=== PATIENT | male | born 1945 | race Caucasian/White ===

== ENCOUNTER 2016-12-15 12:08 | Inpatient (IN) | payer MEDICARE, BC ==
[~2016-12-15] VITALS: Ht 177.8 cm; Wt 100.3 kg
[~2016-12-15 12:08] MED LIST: ASPIRIN 81M81 MG/TA2 PO; AVAPRO300 M1 PO; CARTIA XT120 MG PO; CEPHALEXIN500 M1 PO; COUMADIN 1MG1 MG/TAB PO; COUMADIN 5MG5 MG/TAB PO; COUMADIN 6MG6 MG/TAB PO; COUMADIN5 MG PO; FISH OIL 1000MG1 CAP PO; FLOMAX 0.40.4 MG/CAP PO; LASIX 40MG TABL40 MG PO; LIPITOR20 MG PO; MAG-OX 400400 MG/TAB PO; NEXIUM 40MG40 MG PO; NORVASC2.5 MG PO; PLAVIX 75MG TAB75 MG PO; PRAVACHOL 40MG40 MG PO; PREDNISONE20 MG PO; PROPAFENONE HC225 MG PO; PROVENTIL0.09 MG/A1 IH; RT SPIRIVA18 MCG IH; TIKOSYN0.5 MG PO; TOPROL XL100 MG PO
[2016-12-15 12:36] VITALS: BP 148/95; PULSE 77; TEMP 97.9
[2016-12-15] MEDS ORDERED: CEPHALEXIN500 M1 PO (14:46)
[2016-12-15 15:55] LABS: ADJUSTED CALCIUM 9.3 mg/dL (8.4-10.2); ALBUMIN 3.3 gm/dL (3.5-5.0); BILIRUBIN,TOTAL 1.2 mg/dL (0.0-1.0); CALCIUM 8.7 mg/dL (8.4-10.2); CREATININE, serum 0.7 mg/dL (0.66-1.25); POTASSIUM 4.1 mmol/L (3.4-5.0); TOTAL PROTEIN 6.8 gm/dL (6.4-8.2)
[2016-12-15 16:00] VITALS: BP 116/62; PULSE 89; TEMP 98.1
[2016-12-15 16:15] LABS: C-REACTIVE PROTEIN 24.5 mg/dL (0.0-0.9)
[2016-12-15 20:08] LABS: BASO % 0.2 % (0.0-2.0); EOS # 0.1 (0.0-0.7); EOS % 0.5 % (0-4.0); GRAN # 8.6 (1.4-6.5); LYMPH # 1.2 (1.2-3.4); MEAN CELL VOLUME 95 fl (80.0-100.0); MEAN CORPUSCULAR HGB CONC 34 g/dl (33.0-37.0); MEAN PLATELET VOLUME 10.4 fl (7.4-10.4); MONO # 0.8 (0.1-0.6); MONO % 7.2 % (1.7-9.3); PLATELET COUNT 203 K/mm3 (130-400); RED BLOOD COUNT 3.28 M/mm3 (4.20-5.60); REDCELL DISTRIBUTION WIDTH-CV 12.7 % (11.5-14.5); WHITE BLOOD COUNT 10.9 K/mm3 (4.8-10.8)
[2016-12-15 20:13] LABS: HEMATOCRIT 31.2 % (42.0-52.0); HEMOGLOBIN 10.5 g/dl (13.5-18.0); MEAN CORPUSCULAR HEMOGLOBIN 32 pg (27.0-31.0)
[2016-12-15 20:21] LABS: INR 4.3 (0.8-3.0)
[2016-12-15 20:45] LABS: PROTHROMBIN TIME 50.9 SECONDS (9.7-12.8)
[2016-12-15 20:48] VITALS: BP 122/52; PULSE 74; TEMP 98.9
[2016-12-15 23:39] VITALS: BP 139/52; PULSE 70; TEMP 98.8
[2016-12-16] VITALS (8 sets, daily range): BP systolic 134–151; BP diastolic 51–63; PULSE 70–77; TEMP 98.4–100.2
[2016-12-16 08:21] LABS: MEAN CELL VOLUME 98 fl (80.0-100.0); MEAN CORPUSCULAR HGB CONC 33 g/dl (33.0-37.0); MEAN PLATELET VOLUME 10.8 fl (7.4-10.4); PLATELET COUNT 234 K/mm3 (130-400); RED BLOOD COUNT 3.55 M/mm3 (4.20-5.60)
[2016-12-16 08:22] LABS: PROTHROMBIN TIME 34.8 SECONDS (9.7-12.8)
[2016-12-16 08:25] LABS: ADD PATHOLOGY DIFF REVIEW NO; HEMATOCRIT 34.7 % (42.0-52.0); HEMOGLOBIN 11.5 g/dl (13.5-18.0); MEAN CORPUSCULAR HEMOGLOBIN 32 pg (27.0-31.0)
[2016-12-16 08:29] LABS: CALCIUM 8.8 mg/dL (8.4-10.2); CREATININE, serum 0.69 mg/dL (0.66-1.25)
[2016-12-16 09:27] LABS: BAND 19 % (0-10); NEUTROPHILS 70 % (42.0-75.2); PLATELET ESTIMATE NORMAL (NORMAL); TOTAL CELLS COUNTED 100
[2016-12-17 03:02] VITALS: BP 138/56; PULSE 95; TEMP 99.7
[2016-12-17 07:23] VITALS: BP 140/52; PULSE 80; TEMP 99.9
[2016-12-17 10:35] LABS: BASO % 0.3 % (0.0-2.0); EOS # 0.2 (0.0-0.7); EOS % 1.4 % (0-4.0); GRAN # 10.5 (1.4-6.5); GRAN % 82.5 % (42.2-75.2); HEMATOCRIT 32.9 % (42.0-52.0); HEMOGLOBIN 10.9 g/dl (13.5-18.0); LYMPH # 0.9 (1.2-3.4); LYMPH % 7.1 % (20.0-51.0); MEAN CELL VOLUME 98 fl (80.0-100.0); MEAN CORPUSCULAR HEMOGLOBIN 32 pg (27.0-31.0); MEAN CORPUSCULAR HGB CONC 33 g/dl (33.0-37.0); MEAN PLATELET VOLUME 10.4 fl (7.4-10.4); MONO % 7.5 % (1.7-9.3); PLATELET COUNT 266 K/mm3 (130-400); RED BLOOD COUNT 3.37 M/mm3 (4.20-5.60); WHITE BLOOD COUNT 12.7 K/mm3 (4.8-10.8)
[2016-12-17 10:42] LABS: INR 1.7 (0.8-3.0); PROTHROMBIN TIME 19.4 SECONDS (9.7-12.8)
[2016-12-17 11:03] VITALS: BP 124/58; PULSE 79; TEMP 99
[2016-12-17 16:03] VITALS: BP 113/46; PULSE 71; TEMP 100.3
[2016-12-17 20:06] VITALS: BP 122/49; PULSE 70; TEMP 98.5
[2016-12-18 00:03] VITALS: BP 116/52; PULSE 67; TEMP 99.6
[2016-12-18 03:30] VITALS: BP 121/48; PULSE 70; TEMP 98.7
[2016-12-18 07:43] LABS: MEAN CELL VOLUME 97 fl (80.0-100.0); MEAN CORPUSCULAR HGB CONC 33 g/dl (33.0-37.0); MEAN PLATELET VOLUME 10.3 fl (7.4-10.4); PLATELET COUNT 235 K/mm3 (130-400); RED BLOOD COUNT 3.08 M/mm3 (4.20-5.60); REDCELL DISTRIBUTION WIDTH-CV 12.6 % (11.5-14.5); WHITE BLOOD COUNT 10.8 K/mm3 (4.8-10.8)
[2016-12-18 07:47] LABS: INR 1.5 (0.8-3.0); PROTHROMBIN TIME 16.4 SECONDS (9.7-12.8)
[2016-12-18 07:50] LABS: HEMOGLOBIN 9.9 g/dl (13.5-18.0); MEAN CORPUSCULAR HEMOGLOBIN 32 pg (27.0-31.0)
[2016-12-18 07:51] LABS: ADD PATHOLOGY DIFF REVIEW NO
[2016-12-18 07:54] LABS: CREATININE, serum 0.76 mg/dL (0.66-1.25); POTASSIUM 3.4 mmol/L (3.4-5.0)
[2016-12-18 08:09] VITALS: BP 141/58; PULSE 73; TEMP 98.8
[2016-12-18 08:53] LABS: BAND 4 % (0-10); EOSINOPHIL 1 % (0-4); NEUTROPHILS 69 % (42.0-75.2); PLATELET ESTIMATE NORMAL (NORMAL); TOTAL CELLS COUNTED 100
[2016-12-18 11:55] VITALS: BP 119/54; PULSE 69; TEMP 97.5
[2016-12-18] MEDS ORDERED: TEFLARO 60600 MG/VIA IV (11:58)
[2016-12-21] MEDS ORDERED: VANCOMYCIN 11 G/VIA1 IV (08:19)
== END 2016-12-18 13:55 | disposition home or self-care (01) | DRG 603 ==
LOC: MEDICAL 12:08
PROVIDERS: Nurse Practitioner Family; Physician Assistant
PROC: 02HV33Z Insertion of Infusion Device into Superior Vena Cava, Percutaneous Approach (ICD-10-PCS; principal; 2016-12-16)
DX: L03.116 Cellulitis of left lower limb (principal); I48.91 Unspecified atrial fibrillation; J44.9 Chronic obstructive pulmonary disease, unspecified; I89.0 Lymphedema, not elsewhere classified; F17.210 Nicotine dependence, cigarettes, uncomplicated; Z79.01 Long term (current) use of anticoagulants
CPT/HCPCS: 99223-AI; 99233-AI; 99239; C1751; J1644; J2270; J3370; J7040; J7050

== ENCOUNTER → 2016-12-24 | Outpatient (CLI) | payer MEDICARE, BC ==
[~2016-12-24] MED LIST changes: +TEFLARO 60600 MG/VIA IV; +VANCOCIN HCL1 GM IV; +VANCOMYCIN 11 G/VIA1 IV
== END ==
LOC: COL.RAD 14:53
DX: M21.612 Bunion of left foot (principal); M79.89 Other specified soft tissue disorders; M19.072 Primary osteoarthritis, left ankle and foot

== ENCOUNTER 2018-11-23 06:55 | Day surgery (SDC) | payer MEDICARE, BC ==
[~2018-11-23] VITALS: Ht 177.8 cm; Wt 103.5 kg
[2018-11-23 07:21] VITALS: BP 106/54; PULSE 73; TEMP 97
[2018-11-23 07:36] LABS: POTASSIUM 5.6 mmol/L (3.4-5.0)
[2018-11-23 08:02] LABS: INR 2.2 (0.8-3.0)
[2018-11-23 08:05] LABS: THYROID STIMULATING HORMONE 1.54 uIU/mL (0.465-4.680)
[2018-11-23] MEDS ORDERED: TIKOSYN0.25 MG PO (08:44)
[2018-11-23] MEDS ORDERED: PLAVIX 75MG TAB75 MG PO (08:45)
[2018-11-23] MEDS ORDERED: PROVENTIL0.09 MG/A1 IH (08:49)
--- NOTE | 2018-11-23 09:22 | NUR ---
Procedure cancelled per Dr Argueta.Will await further orders.
[2018-11-23 09:45] VITALS: BP 102/73; PULSE 77
--- NOTE | 2018-11-23 09:55 | NUR ---
Pt ambulatory to exit. MAYRA and cardioversion were not completed today as pt was not in AFIB. PT has discussed poc and follow up with cardiology. Pacer interrogation was done by optical laboratory mechanic rn prior to pt's departure. pt denies any questions or concerns at time of departure.
== END 2018-11-23 09:55 | disposition home or self-care (01) ==
LOC: COL.CAR 06:55
PROVIDERS: Internal Medicine Cardiovascular Disease
DX: I48.0 Paroxysmal atrial fibrillation (principal); I70.213 Atherosclerosis of native arteries of extremities with intermittent claudication, bilateral legs; G47.33 Obstructive sleep apnea (adult) (pediatric); I25.10 Atherosclerotic heart disease of native coronary artery without angina pectoris; J44.9 Chronic obstructive pulmonary disease, unspecified; E66.9 Obesity, unspecified; D50.9 Iron deficiency anemia, unspecified; N40.0 Benign prostatic hyperplasia without lower urinary tract symptoms; Z79.01 Long term (current) use of anticoagulants; Z79.02 Long term (current) use of antithrombotics/antiplatelets; Z95.0 Presence of cardiac pacemaker; Z87.891 Personal history of nicotine dependence
CPT/HCPCS: J2704; J7120

== ENCOUNTER 2018-12-07 08:25 | Day surgery (SDC) | payer MEDICARE, BC ==
[~2018-12-07] VITALS: Ht 177.8 cm; Wt 105.0 kg
[~2018-12-07 08:25] MED LIST changes: +TIKOSYN0.25 MG PO
[2018-12-07] MEDS ORDERED: SPIRIVA RE2.5 MCG/Ac IH (08:46)
[2018-12-07 08:52] VITALS: BP 121/64; PULSE 74; TEMP 97.6
[2018-12-07 10:00] VITALS: BP 126/26; PULSE 80
--- NOTE | 2018-12-07 10:16 | NUR ---
Pt is ambulatory to bathroom. Eval by Dr. Muniz is pending. Celena RN did call him abou t20 min ago leaving a message. Rafael RHODES just spoke with Dr. Muniz and he is on the way. Pt updated.
--- NOTE | 2018-12-07 10:59 | NUR ---
Pt sitting in chair in room 11, remains p,w,d, resp reg and unlabored, hr regular. Called Dr. Muniz who states he is on the way.
--- NOTE | 2018-12-07 11:00 | NUR ---
Dr. Muniz in room to speak with pt. MAYRA/CV cancelled per Dr. Muniz. Dr. Muniz instucted pt to stop tikosyn today. Dr. Muniz's office will send script for Amiodarone to pt's pharmacy. Pt is to start Amiodarone 5-7 days after Tikosyn is stopped. Dr. Muniz's office with schedule f/u in 2 weeks. Pt verbalized understanding. Dr. Muniz will enter discharge orders.
--- NOTE | 2018-12-07 11:20 | NUR ---
Pt and left unit per ambulation. Pt will call office for follow up appt.
== END 2018-12-07 13:37 | disposition home or self-care (01) ==
LOC: COL.CAR 08:25
DX: I48.0 Paroxysmal atrial fibrillation (principal); Z95.0 Presence of cardiac pacemaker; Z79.01 Long term (current) use of anticoagulants; Z79.899 Other long term (current) drug therapy; I08.3 Combined rheumatic disorders of mitral, aortic and tricuspid valves; G47.33 Obstructive sleep apnea (adult) (pediatric); Z95.820 Peripheral vascular angioplasty status with implants and grafts; Z87.891 Personal history of nicotine dependence

== ENCOUNTER 2019-09-02 13:02 | Observation (INO) | payer MEDICARE, BC ==
[~2019-09-02] VITALS: Ht 177.8 cm; Wt 103.9 kg
[~2019-09-02 13:02] MED LIST changes: -COUMADIN 1MG1 MG/TAB PO; +SPIRIVA RE2.5 MCG/Ac IH; +TOPROL XL 50MG50 MG PO; -TOPROL XL100 MG PO
[2019-09-02] MEDS ORDERED: COUMADIN 5MG5 MG/TAB PO (13:50)
[2019-09-02] MEDS ORDERED: MICARDIS80 MG PO (13:51)
[2019-09-02] MEDS ORDERED: ALDACTONE 25MG25 M1 PO (13:53)
[2019-09-02 13:55] VITALS: BP 106/53; PULSE 71; TEMP 97.9
[2019-09-02] MEDS ORDERED: DEMADEX 20MG20 M1 (13:55)
[2019-09-02 13:59] LABS: HEMOGLOBIN 11.2 g/dl (13.5-18.0); MEAN CELL VOLUME 98 fl (80.0-100.0); MEAN CORPUSCULAR HEMOGLOBIN 32 pg (27.0-31.0); MEAN CORPUSCULAR HGB CONC 33 g/dl (33.0-37.0); MEAN PLATELET VOLUME 10.7 fl (7.4-10.4); PLATELET COUNT 192 K/mm3 (130-400); RED BLOOD COUNT 3.49 M/mm3 (4.20-5.60); REDCELL DISTRIBUTION WIDTH-CV 12.9 % (11.5-14.5)
[2019-09-02 14:04] LABS: HEMATOCRIT 34.2 % (42.0-52.0)
[2019-09-02 14:06] LABS: INR 1.6 (0.8-3.0); PROTHROMBIN TIME 17.7 SECONDS (9.7-12.8)
[2019-09-02 14:08] LABS: PARTIAL THROMBOPLASTIN TIME 40.6 SECONDS (26.0-37.0)
[2019-09-02 14:11] LABS: CALCIUM 9.6 mg/dL (8.4-10.2); CREATININE, serum 2.38 (0.66-1.25)
[2019-09-02 14:15] LABS: POTASSIUM 6.9 mmol/L (3.4-5.0)
[2019-09-02 15:08] LABS: CALCIUM 9.5 mg/dL (8.4-10.2); CREATININE, serum 2.23 (0.66-1.25)
[2019-09-02 15:12] LABS: POTASSIUM 7.4 mmol/L (3.4-5.0)
[2019-09-02 16:00] VITALS: BP 112/56; BP 133/60
--- NOTE | 2019-09-02 18:25 | NUR ---
Pt arrives to medical unit from Express unit via WC, awake and alert, oriented x 4, steady gait. IVF's infusing to left forearm site with slight edema superior to site, that pt reports has been there, no signs of infiltration. Pt denies further needs. Call light in reach.
[2019-09-02 18:31] VITALS: BP 138/50; PULSE 69; TEMP 97.7
--- NOTE | 2019-09-02 19:09 | NUR ---
Report with CARMELO Malave. Pt sitting up in chair eating dinner, denies needs. Call light in reach.
[2019-09-02 19:25] VITALS: BP 120/43; PULSE 73; TEMP 98
[2019-09-02 19:41] LABS: ALBUMIN 4.6 gm/dL (3.5-5.0); CALCIUM 11.4 mg/dL (8.4-10.2); CREATININE, serum 2.29 (0.66-1.25); PHOSPHOROUS 6.5 mg/dL (2.5-4.5)
--- NOTE | 2019-09-02 19:45 | NUR ---
Resting in recliner. Assessment complete. Right lobes wheezing with expiration and left upper lobe diminished. Heart sounds normal. Bowels active x4. Pulses strong throughout. No edema noted at this time. Bilateral lower extremity discoloration. Scabbed abrasions to forarms bilaterally. Bicarb infusing as ordered to left forearm. Telemetry on. Denies needs at this time. Call light in reach. Will monitor.
--- NOTE | 2019-09-02 19:55 | NUR ---
Lab called stating patient K+ level is 6.0. Spoke with Dr. Jeffries. Asked for patient bicarb level or co2 level. Carbon dioxide is 21. Per Dr. Jeffries repeat basic in AM. Heart healthy diet. Consult dietary for low potassium diet teaching. Also obtained order for PRN tylenol while on phone. No other orders at this time.
--- NOTE | 2019-09-02 22:35 | NUR ---
Sitting in recliner. Denies needs. Call light in reach.
[2019-09-02 23:16] VITALS: BP 137/52; PULSE 71; TEMP 98.7
--- NOTE | 2019-09-03 02:03 | NUR ---
Resting in bed asleep. No obvious signs of distress. Call light in reach.
[2019-09-03 03:30] VITALS: BP 126/57; PULSE 72; TEMP 97.8
--- NOTE | 2019-09-03 04:15 | NUR ---
Resting in bed. Denies needs. Call light in reach.
--- NOTE | 2019-09-03 06:04 | NUR ---
Patient had uneventful night. Resting in recliner this AM. Call light in reach.
--- NOTE | 2019-09-03 07:28 | NUR ---
Report given to CARMELO Armstrong
--- NOTE | 2019-09-03 07:30 | NUR ---
Report received from CARMELO Malave. PT in recliner at side of bed, discussed renal ultrasound plan and to stay NPO for now. Pt agreeable to plan, will continue ot monitor.
[2019-09-03 07:53] LABS: CALCIUM 9.7 mg/dL (8.4-10.2); CREATININE, serum 1.7 (0.66-1.25); POTASSIUM 5.3 mmol/L (3.4-5.0)
--- NOTE | 2019-09-03 08:31 | NUR ---
Assessment charted. Pt agreeable to Renal US plan. Called Radiology and she calledi n US tech to complete ultrasound. Will discuss home meds with Bedros during rounds as pts home meds not addressed to date. Pt denies pain. REsting quietly. INT to LFA. Denies needs, will continue to monitor.
[2019-09-03 12:09] VITALS: BP 126/59; PULSE 72; TEMP 97.8
--- NOTE | 2019-09-03 13:32 | NUR ---
Plan: Plans to return home with Cordelia Dawkins [phone]. Assessment: SW met with atient about DC plan. Patient reports that he resides in [place] with his spouse. Patient reports having a pacemaker and using CPAP as his DME. No additional devices for mobility. Patient reports that his PCP is Dr. Jf Hassan. Patient shares that he uses [facility] for Medications with difficulty. Patient reports that his is the DPOA and they have a Living will. Patient declines home health services and has transportation home. Patient reports that his does not have any care concerns. Action: SW educated patient on services and community supports.
--- NOTE | 2019-09-03 13:40 | NUR ---
DIscharge teachign completed at this time. INT dc'd, tip intact. Reviewed dishcarge packet, follow up appointments. Pt left wtih all belongings, escorted out by myself, to drive home criteria met.
== END 2019-09-03 13:40 | disposition home or self-care (01) ==
LOC: COL.CAR 13:02 → MEDICAL 16:44
PROVIDERS: Internal Medicine Interventional Cardiology; ADMIT Internal Medicine Nephrology
DX: E87.5 Hyperkalemia (principal); E87.2 Acidosis; I13.0 Hypertensive heart and chronic kidney disease with heart failure and stage 1 through stage 4 chronic kidney disease, or unspecified chronic kidney disease; N18.3 Chronic kidney disease, stage 3 (moderate); I50.20 Unspecified systolic (congestive) heart failure; R06.02 Shortness of breath; J44.9 Chronic obstructive pulmonary disease, unspecified; E78.5 Hyperlipidemia, unspecified; I25.10 Atherosclerotic heart disease of native coronary artery without angina pectoris; I73.9 Peripheral vascular disease, unspecified; I34.0 Nonrheumatic mitral (valve) insufficiency; Z79.01 Long term (current) use of anticoagulants; Z79.899 Other long term (current) drug therapy; Z87.891 Personal history of nicotine dependence; Z95.0 Presence of cardiac pacemaker
CPT/HCPCS: G0378; J1815

== ENCOUNTER 2019-09-30 10:49 | Day surgery (SDC) | payer MEDICARE, BC ==
[~2019-09-30] VITALS: Ht 177.8 cm; Wt 106.6 kg
[2019-09-30] VITALS (11 sets, daily range): BP systolic 118–148; BP diastolic 45–82; PULSE 70–77; TEMP 98.1
[~2019-09-30 10:49] MED LIST changes: +ALDACTONE 25MG25 M1 PO; +DEMADEX 20MG20 M1; +MICARDIS80 MG PO; +SODIUM BICARBON1 POW PO
[2019-09-30 11:55] LABS: MEAN CELL VOLUME 99 fl (80.0-100.0); MEAN CORPUSCULAR HGB CONC 33 g/dl (33.0-37.0); MEAN PLATELET VOLUME 10.6 fl (7.4-10.4); PLATELET COUNT 150 K/mm3 (130-400); RED BLOOD COUNT 2.94 M/mm3 (4.20-5.60); REDCELL DISTRIBUTION WIDTH-CV 13.3 % (11.5-14.5)
[2019-09-30 11:58] LABS: HEMOGLOBIN 9.7 g/dl (13.5-18.0); MEAN CORPUSCULAR HEMOGLOBIN 33 pg (27.0-31.0)
[2019-09-30 12:02] LABS: INR 1.1 (0.8-3.0); PROTHROMBIN TIME 11.8 SECONDS (9.7-12.8)
[2019-09-30 12:21] LABS: CALCIUM 9.1 mg/dL (8.4-10.2); CREATININE, serum 1.05 (0.66-1.25); POTASSIUM 4.4 mmol/L (3.4-5.0)
--- NOTE | 2019-09-30 16:20 | NUR ---
SEE MERGE DOCUMENTATION FOR MEDICATION ADMINISTRATION AND INTA/POST PROCEDURE SEDATION ASSESSMENTS.
--- NOTE | 2019-09-30 16:50 | NUR ---
Back from greens laborer by bed. right groin site brandee CD&I. VSS. Denies pain and needs at this time
--- NOTE | 2019-09-30 20:10 | NUR ---
INT discontinued intact after pt ambulated to bathroom with steady gait. right groin site CD&I. Discharge instructions given. Transferred to private car by emilie
== END 2019-09-30 20:10 | disposition home or self-care (01) ==
LOC: COL.CAR 10:49
PROVIDERS: Internal Medicine Interventional Cardiology
DX: I25.10 Atherosclerotic heart disease of native coronary artery without angina pectoris (principal); R94.39 Abnormal result of other cardiovascular function study; I48.0 Paroxysmal atrial fibrillation; G47.33 Obstructive sleep apnea (adult) (pediatric); Z79.01 Long term (current) use of anticoagulants; Z95.0 Presence of cardiac pacemaker; Z79.02 Long term (current) use of antithrombotics/antiplatelets; Z73.9 Problem related to life management difficulty, unspecified; Z20.828 Contact with and (suspected) exposure to other viral communicable diseases
CPT/HCPCS: J1644; J1940; J2250; J3010

== ENCOUNTER 2023-03-18 14:35 | Inpatient (IN) | payer MEDICARE, BC ==
[~2023-03-18] VITALS: Ht 177.8 cm; Wt 103.1 kg
[~2023-03-18 14:35] MED LIST changes: +ATROVENT NASAL15 ML NS; +KLOR-CON M2020 MEQ PO; +LIPITOR 80MG80 MG PO; +PACERONE200 MG PO; +TRELEGY ELLIPT1 EAC1 IH; +VITAMIN B122500 MCG PO; +VITAMIN D31000 IU PO; +VITAMINC1000TA PO
[2023-03-18] MEDS ORDERED: COUMADIN 5MG5 MG/TAB PO (15:11)
[2023-03-18 16:05] LABS: BASO % 0.5 % (0.0-2.0); EOS % 0.7 % (0.0-4.0); GRAN # 3.2 K/mm3 (1.4-6.5); GRAN % 76.9 % (42.2-75.2); HEMOGLOBIN 10.5 g/dl (13.5-18.0); LYMPH # 0.3 K/mm3 (1.2-3.4); LYMPH % 7.4 % (20.0-51.0); MEAN CELL VOLUME 104 fl (80.0-100.0); MEAN CORPUSCULAR HEMOGLOBIN 33 pg (27-31); MEAN CORPUSCULAR HGB CONC 32 g/dl (33.0-37.0); MEAN PLATELET VOLUME 11.1 fl (7.4-10.4); MONO # 0.6 K/mm3 (0.1-0.6); MONO % 13.8 % (1.7-9.3); PLATELET COUNT 128 K/mm3 (130-400); RED BLOOD COUNT 3.18 M/mm3 (4.20-5.60); REDCELL DISTRIBUTION WIDTH-CV 15.6 % (11.5-14.5)
[2023-03-18 16:08] LABS: HEMATOCRIT 32.9 % (42.0-52.0)
[2023-03-18 16:28] LABS: ALBUMIN 3.3 gm/dL (3.4-4.8); BILIRUBIN,TOTAL 1.4 mg/dL (0.2-1.2); CALCIUM 9.1 mg/dL (8.4-10.2); CREATININE, serum 1.1 mg/dL (0.72-1.25); POTASSIUM 4.1 mmol/L (3.5-4.5); TOTAL PROTEIN 6.6 gm/dL (6.2-8.1)
[2023-03-18 16:35] LABS: TROPONIN-I 0.014 ng/mL (0.00-0.033)
[2023-03-18 16:52] LABS: COLLECTION METHOD CLEAN CATCH
[2023-03-18 17:06] LABS: PH 5.5 (5.0-8.5); URINE APPEARANCE Hazy (CLEAR/HAZY); URINE COLOR Yellow (YELLOW); URINE GLUCOSE Negative (NEGATIVE); URINE KETONE Negative (NEGATIVE); URINE PROTEIN(semi-quant) 2+ (NEGATIVE)
[2023-03-18 17:07] LABS: GRANULAR CAST >12 /lpf (0); MUCOUS Present (NOT PRESENT); URINE BACTERIA Moderate /hpf (NONE SEEN); URINE BLOOD Negative (NEGATIVE); URINE NITRATE Negative (NEGATIVE)
[2023-03-18 17:08] LABS: SQUAMOUS EPITHELIAL 0-2 /hpf (0-10); URINE RBC None Seen /hpf (0-2)
[2023-03-18 20:15] VITALS: BP 137/71; PULSE 86; TEMP 97.6
[2023-03-18 21:00] VITALS: BP_SYST 120
[2023-03-18 21:30] LABS: PHOSPHOROUS 4.3 mg/dL (2.3-4.7)
[2023-03-18 21:34] VITALS: BP 143/110; PULSE 116; TEMP 97.1
[2023-03-18 21:44] LABS: INR 5.8 (0.8-3.0); PROTHROMBIN TIME 60.2 SECONDS (9.7-12.8)
[2023-03-18 23:29] VITALS: BP 120/66; PULSE 71; TEMP 97.6
--- NOTE | 2023-03-18 23:37 | NUR ---
patient arrived from ED around 2014, alert and oriented x4. pt ambulate with steady gait but experiencing some weakness, denies chest pain and reports being short of breath, head of bead elevated, o2 sat at 97% on 3L per oxymask. BLE +3 pitting edema and slight purpleish discoloration, dry cracked heels with closed old ulcers/callouses on ball of left foort and right lower bottom toe, genaral extremities bruising noted. IV in LH is patent, site is clean dry and intact. pt feeling like he "can't catch breath" denies chest pain, WILFREDO Larsen notified, morphine given at this time. pt has no further needs, questions or concerns at this time. fall precautions in place, call light within reach, will continue to monitor.
[2023-03-19] VITALS (13 sets, daily range): BP systolic 103–143; BP diastolic 63–77; PULSE 60–65; TEMP 97.8–98.6
[2023-03-19 08:10] LABS: HEMOGLOBIN 10.1 g/dl (13.5-18.0); MEAN CELL VOLUME 105 fl (80.0-100.0); MEAN CORPUSCULAR HEMOGLOBIN 34 pg (27-31); MEAN CORPUSCULAR HGB CONC 32 g/dl (33.0-37.0); MEAN PLATELET VOLUME 10.9 fl (7.4-10.4); PLATELET COUNT 119 K/mm3 (130-400); REDCELL DISTRIBUTION WIDTH-CV 15.8 % (11.5-14.5)
[2023-03-19 08:13] LABS: HEMATOCRIT 31.4 % (42.0-52.0)
[2023-03-19 08:24] LABS: ANISOCYTOSIS 1+; BAND 4 % (0-10); BASOPHIL 1 % (0-2); HYPOCHROMIA 1+; LYMPHOCYTE 6 % (20.0-51.0); NEUTROPHILS 85 % (42.0-75.2)
[2023-03-19 08:25] LABS: OVALOCYTES 1+
[2023-03-19 08:26] LABS: CREATININE, serum 1.31 mg/dL (0.72-1.25); POTASSIUM 4.4 mmol/L (3.5-4.5); PROTHROMBIN TIME 75.2 SECONDS (9.7-12.8)
[2023-03-19 08:27] LABS: INR 7.3 (0.8-3.0)
--- NOTE | 2023-03-19 14:51 | NUR ---
Automatic I Threading Machine Feeder met with patient to discuss discharge planning. Patient lives in [place] with his , Cordelia (ph#[phone]) and sees Dr. Obregon at [facility] for primary care. Patient obtains medications from [facility] with no difficulties. Patient was recently admitted to this hospital and advised he attended his follow up appointment with Dr. Obregon. Patient did not think he had any new prescriptions after his last stay. Patient stated he is normally independent with ADLS and drives himself to medical appointments. Patient does not normally use DME for ambulation but has been using a walker for the last couple of days. Patient has a CPAP and home oxygen established. Patient advised he is normally on two liters. Patient plans to return home at time of discharge. PT/OT ordered. Discharge Plan: Home
[2023-03-20] VITALS (11 sets, daily range): BP systolic 118–135; BP diastolic 63–73; PULSE 60–73; TEMP 97.2–98.2
--- NOTE | 2023-03-20 05:30 | NUR ---
ASSESSMENT COMPLETE FOR PACKING CHECKER. PT HAD AN EPISODE SHORTLY AFTER PLACING HIS CPAP ON, WHERE HE COMPLAINED HE FELT HE COULD NOT BREATH AND FELT ANXIOUS. PT'S O2 SATS WERE FOUND TO BE IN THE UPPER 70'S. RT CALLED. PT PLACED ON 5L VIA OXYMASK. PT'S O2 UP TO 95%. HOSPITALIST INFORMED. PT REQUESTED MORPHINE FOR HIS ANXIETY. HOSPITALIST CALLED. PT GIVEN MORPHINE TO RELAX HIS MUSCLES THAT SUPPORT BREATHING, SO THAT HE COULD BREATH EASIER. PT FELT THE MORPHINE WAS EFFECTIVE. PT DENIED CHEST PAIN, N,V,D OR DIZZINESS. FALL PRECAUTIONS IN PLACE. BED ALARM ON. CALL LIGHT WITHIN REACH.
--- NOTE | 2023-03-20 06:40 | NUR ---
resting in chair, bedside shift report received from CARMELO Green, O2 on at this time
[2023-03-20 06:54] LABS: HEMOGLOBIN 10.3 g/dl (13.5-18.0); MEAN CELL VOLUME 104 fl (80.0-100.0); MEAN CORPUSCULAR HEMOGLOBIN 33 pg (27-31); MEAN CORPUSCULAR HGB CONC 32 g/dl (33.0-37.0); MEAN PLATELET VOLUME 11.7 fl (7.4-10.4); PLATELET COUNT 122 K/mm3 (130-400); REDCELL DISTRIBUTION WIDTH-CV 15.6 % (11.5-14.5)
[2023-03-20 06:55] LABS: HEMATOCRIT 32.2 % (42.0-52.0)
[2023-03-20 07:14] LABS: CALCIUM 8.9 mg/dL (8.4-10.2); CREATININE, serum 1.34 mg/dL (0.72-1.25); POTASSIUM 4.2 mmol/L (3.5-4.5)
[2023-03-20 07:21] LABS: INR 6.2 (0.8-3.0); PROTHROMBIN TIME 64.4 SECONDS (9.7-12.8)
[2023-03-20 07:29] LABS: BAND 8 % (0-10); LYMPHOCYTE 10 % (20.0-51.0); NEUTROPHILS 68 % (42.0-75.2); PLATELET ESTIMATE NORMAL (NORMAL)
--- NOTE | 2023-03-20 07:45 | NUR ---
remains up in recliner, full assessment completed, see interventions for further info, denies pain or needs at this time, instructed to call when he uses the urinal so we can record his output, verbalizes understanding
--- NOTE | 2023-03-20 09:00 | NUR ---
called and had attempted to use the urinal but missed and was incontinent, unmeasured void documented,
--- NOTE | 2023-03-20 09:56 | NUR ---
Initial visit; Patient thanked Warehouse Order Picker for looking in on him and offering God's blessings for healing and to keep him in her prayers. Warehouse Order Picker wished him well.
--- NOTE | 2023-03-20 10:30 | NUR ---
mental health tech calls stating his heart rate is elevated at this time, entered room and patient was returning from ambulating with physical therapy, is now resting in chair, mental health tech notified
--- NOTE | 2023-03-20 11:30 | NUR ---
sitting up in chair ready to eat lunch, denies needs
--- NOTE | 2023-03-20 12:00 | NUR ---
sitting up in chair ready for lunch
--- NOTE | 2023-03-20 13:05 | NUR ---
had lunch and tolerated well, remains up in chair, Lasix IV given
--- NOTE | 2023-03-20 15:34 | NUR ---
GARETT Quesada provided patient with Medicare.gov list of HH agencies in the surrounding area. Patient expressed that at this time he is not interested in discharging with HH services. GARETT Student let patient know to inform staff if he would like to pursue with HH services so referrals could be sent.
--- NOTE | 2023-03-20 16:07 | NUR ---
shift report given to CARMELO Salazar
--- NOTE | 2023-03-20 16:08 | NUR ---
PATIENT AWAKE AND ALERT, SITTING UP IN BED, O2 @ 6LOM. PATIENTS CALL LIGHT WITHIN REACH. SHE DENIES ANY NEEDS OR COMPLAINTS AT THIS TIME.
[2023-03-21 00:10] VITALS: BP_SYST 127
[2023-03-21 03:24] VITALS: BP 141/62; PULSE 77; TEMP 97.5
[2023-03-21 04:10] VITALS: BP_SYST 141
[2023-03-21 07:23] VITALS: BP 108/63; PULSE 62; TEMP 97.6
--- NOTE | 2023-03-21 08:00 | NUR ---
PATIENT AWAKE AND ALERT, SITTING UP IN BED. PATIENT DENIES ANY NEEDS OR COMPLAINTS AT THIS TIME. O2 AT 4LOM. CALL LIGHT WITHIN REACH. FALL PRECAUTIONS IN PLACE
[2023-03-21 08:37] LABS: INR 5.6 (0.8-3.0); PROTHROMBIN TIME 57.7 SECONDS (9.7-12.8)
[2023-03-21 08:38] VITALS: BP_SYST 108
[2023-03-21 08:51] LABS: CALCIUM 9.1 mg/dL (8.4-10.2); CREATININE, serum 1.39 mg/dL (0.72-1.25); POTASSIUM 3.5 mmol/L (3.5-4.5)
[2023-03-21 11:04] VITALS: BP 121/65; PULSE 61; TEMP 97.5
[2023-03-21] MEDS ORDERED: LASIX 40MG TABL40 MG PO ×3 (11:12→11:29)
--- NOTE | 2023-03-21 12:03 | NUR ---
IV AND TELE REMOVED
--- NOTE | 2023-03-21 12:44 | NUR ---
NAA GIVEN DISCHAGRE INSTRUCTIONS AND EDUCATION. IV LASIX GIVEN BEFORE IV AND TELE DISOCNTINUED. PATIENTS AT BEDSIDE
--- NOTE | 2023-03-21 13:41 | NUR ---
PATIENT AWARE OF FAXED INFO FOR FOLLOW UP APTS. PATIENT TAKEN VIA WHEELCHAIR TO ER [facility] WHERE HE WAS SWITCHED FROM OUR O2 TO HIS OWN PROTABLE TANK. PATIENT LEFT IN STABLE CONDITION WITH HIS .
== END 2023-03-21 13:42 | disposition home or self-care (01) | DRG 291 ==
LOC: COL.ER 14:35 → MEDICAL 18:22
PROVIDERS: Internal Medicine; Nurse Practitioner; Nurse Practitioner Family; Physician Assistant; ADMIT Internal Medicine
DX: I13.0 Hypertensive heart and chronic kidney disease with heart failure and stage 1 through stage 4 chronic kidney disease, or unspecified chronic kidney disease (principal); I50.33 Acute on chronic diastolic (congestive) heart failure; J96.21 Acute and chronic respiratory failure with hypoxia; Z20.822 Contact with and (suspected) exposure to COVID-19; E78.5 Hyperlipidemia, unspecified; J44.9 Chronic obstructive pulmonary disease, unspecified; D69.6 Thrombocytopenia, unspecified; D53.9 Nutritional anemia, unspecified; I25.10 Atherosclerotic heart disease of native coronary artery without angina pectoris; I27.20 Pulmonary hypertension, unspecified; R79.1 Abnormal coagulation profile; I34.0 Nonrheumatic mitral (valve) insufficiency; T45.515A Adverse effect of anticoagulants, initial encounter; N18.9 Chronic kidney disease, unspecified; N40.0 Benign prostatic hyperplasia without lower urinary tract symptoms; I48.91 Unspecified atrial fibrillation; Z95.0 Presence of cardiac pacemaker; Z99.81 Dependence on supplemental oxygen; Z87.891 Personal history of nicotine dependence; Z79.01 Long term (current) use of anticoagulants; Z90.49 Acquired absence of other specified parts of digestive tract; Z79.899 Other long term (current) drug therapy; Z23 Encounter for immunization
CPT/HCPCS: J1940; J2270

== ENCOUNTER 2023-03-23 08:37 | Inpatient (IN) | payer MEDICARE, BC ==
[~2023-03-23] VITALS: Ht 177.8 cm; Wt 97.7 kg
[2023-03-23] VITALS (8 sets, daily range): BP systolic 116–150; BP diastolic 62–80; PULSE 58–75; TEMP 97.4–98
[2023-03-23] MEDS ORDERED: LASIX 20MG TABL20 MG PO (08:55)
[2023-03-23] MEDS ORDERED: Furosemide 100 MG/10 ML VIAL IV ONE (09:00)
[2023-03-23 09:15] LABS: BASO % 0.3 % (0.0-2.0); EOS # 0.2 K/mm3 (0.0-0.7); EOS % 2.3 % (0.0-4.0); GRAN # 5.2 K/mm3 (1.4-6.5); GRAN % 78.2 % (42.2-75.2); HEMOGLOBIN 11.1 g/dl (13.5-18.0); LYMPH # 0.5 K/mm3 (1.2-3.4); LYMPH % 8.2 % (20.0-51.0); MEAN CELL VOLUME 103 fl (80.0-100.0); MEAN CORPUSCULAR HEMOGLOBIN 32 pg (27-31); MEAN CORPUSCULAR HGB CONC 31 g/dl (33.0-37.0); MEAN PLATELET VOLUME 10.7 fl (7.4-10.4); MONO # 0.7 K/mm3 (0.1-0.6); MONO % 10.4 % (1.7-9.3); PLATELET COUNT 163 K/mm3 (130-400); RED BLOOD COUNT 3.44 M/mm3 (4.20-5.60); REDCELL DISTRIBUTION WIDTH-CV 15.3 % (11.5-14.5)
[2023-03-23 09:24] LABS: HEMATOCRIT 35.3 % (42.0-52.0)
[2023-03-23 09:27] LABS: COLLECTION METHOD CLEAN CATCH
[2023-03-23 09:38] LABS: ALBUMIN 3.4 gm/dL (3.4-4.8); BILIRUBIN,TOTAL 1.5 mg/dL (0.2-1.2); CALCIUM 9.4 mg/dL (8.4-10.2); CREATININE, serum 1.17 mg/dL (0.72-1.25); POTASSIUM 3.2 mmol/L (3.5-4.5); TOTAL PROTEIN 7.7 gm/dL (6.2-8.1)
[2023-03-23 09:43] LABS: URINE COLOR Yellow (YELLOW)
[2023-03-23 09:44] LABS: PH 5.5 (5.0-8.5); SQUAMOUS EPITHELIAL None Seen /hpf (0-10); URINE APPEARANCE Clear (CLEAR/HAZY); URINE BLOOD TRACE-INTACT (NEGATIVE); URINE GLUCOSE Negative (NEGATIVE); URINE KETONE Negative (NEGATIVE); URINE NITRATE Negative (NEGATIVE); URINE PROTEIN(semi-quant) 2+ (NEGATIVE); URINE RBC 0-2 /hpf (0-2)
[2023-03-23 09:45] LABS: URINE BACTERIA Moderate /hpf (NONE SEEN)
[2023-03-23 09:45] LABS: TROPONIN-I 0.048 ng/mL (0.00-0.033)
[2023-03-23 10:43] LABS: INR 2.1 (0.8-3.0); PROTHROMBIN TIME 22.5 SECONDS (9.7-12.8)
[2023-03-23 10:46] LABS: PARTIAL THROMBOPLASTIN TIME 42.7 SECONDS (26.0-37.0)
[2023-03-23] MEDS ORDERED: cefTRIAXone 1 G in Water For Injection,Sterile 10 ML IV ONE (11:00)
[2023-03-23] MEDS ORDERED: Ondansetron 4 MG/2 ML VIAL IV PRN (12:45)
[2023-03-23] MEDS ORDERED: Polyethylene Glycol 3350 17 GM PDS PO PRN (12:45)
[2023-03-23] MEDS ORDERED: Acetaminophen 325 MG TAB PO PRN (12:45)
--- NOTE | 2023-03-23 13:22 | NUR ---
Patient admitted to medical unit from emergency department. Pt awake, alert and oriented. Very short of breath with movement, c/o shortness of breath at baseline. Weak with ambulation, educated pt he will need staff in the room when getting out of bed. Telemetry and oxy mask in place. Discoloration noted to bilateral lower extremities and edema. Denies pain or nausea. Bed in lowest position with call light within reach.
[2023-03-23] MEDS ORDERED: Heparin 5,000 UNITS/ML 1 ML VIAL SQ SCH (16:00)
--- NOTE | 2023-03-23 16:14 | NUR ---
SPO2 ON 6 LPM 90%, NPC, COMPLETED FIRST TR TX ON MED FLOOR, PLEURAL RUB ON LLL, BREATH RATE 20, HR 60. WILL CONTINUE TO MONITOR.
--- NOTE | 2023-03-23 16:37 | NUR ---
Pt down to 86% on 6L oxymask while ambulating to the bathroom, recovered to mid 90s several minutes after getting back to bed, shortness of breath improved but still present.
[2023-03-23] MEDS ORDERED: Magnesium Sulfate 4% 50 ML IV ONE (18:30)
[2023-03-23] MEDS ORDERED: Budesonide Neb Susp 0.5 MG/2 ML AMP IH SCH (19:00)
[2023-03-23] MEDS ORDERED: Warfarin 5 MG TAB PO SCH (21:00)
--- NOTE | 2023-03-23 23:26 | NUR ---
Patient lying in bed alert and oriented x4. pt denies chest pain and reports shortness of breath with exertion. IV in RF is patent, site is clean dry and intact. 2024- Dr. Lisa notified of sotalol initiation and qtc of 526, okay to give medication per orders. +3 pitting edema in BLE with ASHLI wrap bandages applied on each leg, redness/purplish discoloration of lower extremities, general scattered bruising on extremities noted. fall precautions in place, call light within reach. will continue to monitor.
[2023-03-24] VITALS (232 sets, daily range): BP systolic 122–160; BP diastolic 66–76; PULSE 60–88; TEMP 97.5–98.1; O2SAT 90–98
[2023-03-24 08:09] LABS: ALBUMIN 3.2 gm/dL (3.4-4.8); BILIRUBIN,TOTAL 1.5 mg/dL (0.2-1.2); CALCIUM 9.3 mg/dL (8.4-10.2); CREATININE, serum 1.16 mg/dL (0.72-1.25); MAGNESIUM 2.4 mg/dL (1.6-2.6); POTASSIUM 3.8 mmol/L (3.5-4.5); TOTAL PROTEIN 7.5 gm/dL (6.2-8.1)
[2023-03-24 08:17] LABS: INR 1.9 (0.8-3.0); PROTHROMBIN TIME 20.6 SECONDS (9.7-12.8)
[2023-03-24] MEDS ORDERED: Umeclidinium/Vilanterol 62.5-25 MCG INHALATION/INHALER IH SCH (09:00)
[2023-03-24] MEDS ORDERED: Fluticasone/Umeclidinium/Vilanterol **** subs to Budesonide + Umeclid/Vilant IH SCH (09:00)
[2023-03-24] MEDS ORDERED: Amiodarone 200 MG TAB PO SCH (09:00)
[2023-03-24] MEDS ORDERED: guaiFENesin 200 MG TAB PO PRN (09:15)
--- NOTE | 2023-03-24 10:01 | NUR ---
Patient is alert and oriented x4. Complains of feeling congested in his sinuses, as well as dyspnea. SpO2 stable on 6L with oxymask. Patient states he feels like he can't catch a breath. ASHLI wraps in place on bilateral lower extremities, +3 pitting edema continues. Patient has had 100ml of urine output so far this morning, urine is tea colored and clear. PRN order for Mucinex obtained from Dr. Osborn, and update provided on patient. Patient in bed with HOB elevated, call light in reach and bed alarm on. All needs met at this time.
--- NOTE | 2023-03-24 10:07 | NUR ---
EKG for patient this morning showed QTc of 527. Dr. Lisa called and notified. Dr. Lisa states that a QTc below 550 is adequate for patient and it is okay to give Sotalol this morning.
[2023-03-24] MEDS ORDERED: predniSONE 20 MG TAB PO SCH (14:00)
[2023-03-24] MEDS ORDERED: Albuterol/Ipratropium 3 MG-0.5 MG/3 ML Neb Soln IH PRN (14:00)
[2023-03-24] MEDS ORDERED: Furosemide 40 MG/4 ML VIAL IV SCH (14:00)
--- NOTE | 2023-03-24 17:57 | NUR ---
forestry worker met with patient and his , Cordelia, P# [phone] to discuss discharge planning. PCP is Dr. Obregon, Preferred pharmacy is [facility]. No issues affording medications. DPOA-HC is Cordelia. DME is oxygen, CPAP and walker. Patient receives his oxygen from [facility] and he has a concentrator and portable tank. Patient reports to be independent with ADLS and his is able to transport him to and from appointments. Patient and expressed he feels he left the hospital too soon during his last visit. Patient would like to return home when medically clear. SW provided Medicare.gov list of options for home health services. Patient and his were going to review but were not interested at this time. GARETT will follow up. Discharge plan: Home
--- NOTE | 2023-03-24 18:05 | NUR ---
Patient called for assistance with urinal and while assisting patient, he stated he "didn't feel right." Vital signs obtained and within normal limits except for O2sat. O2sat was at 73%, patient noted to be short of breath as well. Patient on 6L O2 via high flow nasal cannula, O2 increased to 8L and O2sat only increased to 84%. Increased to 10L which increased O2 sat to 87%. RT called and came to assist, switched patient back to oxymask and increased O2 to 15L. Patient slowly increased to 94% on 15L. Patient denies chest pain or pain with inhale/exhale. Lung sounds coarse. Patient states he feels as if he is having an "out of body experience." ESPERANZA Larsen notified and orders obtained for stat CXR and ABG. Patient currently in recliner with oxymask on and call light in reach.
[2023-03-24 18:13] LABS: ARTERIAL BLD GAS O2 SATURATION 94.1 % (92-100); ARTERIAL BLD GAS TCO2 CT 31.6; ARTERIAL BLOOD GAS BASE EXCESS 5.4 (-2-2); ARTERIAL BLOOD GAS HCO3 30.2 meq/L (22-26); ARTERIAL BLOOD GAS PO2 69.9 mmHg (80-100); ARTERIAL BLOOD GAS pH 7.45 (7.35-7.45)
[2023-03-24] MEDS ORDERED: NS 74 ML IV SCH (18:56)
[2023-03-24] MEDS ORDERED: Iohexol 300 - 100 ML VIAL IV ONE (18:56)
[2023-03-24] MEDS ORDERED: dexAMETHasone 10 MG/ML VIAL IV SCH (19:07)
--- NOTE | 2023-03-24 19:44 | NUR ---
PT BROUGHT TO [facility] ROOM 16 AT 1912 BY 2 STAFF IN TRANSFER SEAT WITH 15L O2 VIA OXIMASK. VSS AND PT ABLE TO PIVOT TX TO BED. ASSESSMENTS COMPLETED AT THIS TIME AND URINAL AT HIS BED SIDE. ORIENTED TO ROOM, CALL LIGHT, AND BED. BED IN LOW POSITION AND CALL LIGHT WITHIN REACH. TRANSFER PROCESS REVIEWED AND ALL QUESTIONS ANSWERED.
--- NOTE | 2023-03-24 19:44 | NUR ---
Patient received orders to transfer to ICU following increase in O2 requirements. Report called to CARMELO Ward in ICU.
[2023-03-24] MEDS ORDERED: Furosemide 40 MG/4 ML VIAL IV ONE (20:00)
[2023-03-24] MEDS ORDERED: Albuterol/Ipratropium 3 MG-0.5 MG/3 ML Neb Soln IH SCH (20:00)
--- NOTE | 2023-03-24 21:19 | NUR ---
CARMELO PLEITEZ INSERTED IV INTO L HAND.
[2023-03-25] VITALS (1138 sets, daily range): BP systolic 129–140; BP diastolic 52–65; PULSE 60–65; TEMP 97.1–98.4; O2SAT 81–100
--- NOTE | 2023-03-25 01:30 | NUR ---
2000: #16FR braden cath placed in pt at this time, asceptically. No problems , and pt tolerated well. Clear yellow urine. procedure explained to pt prior to placement.
[2023-03-25] MEDS ORDERED: *Potassium Replacement Protocol MC SCH (04:45)
[2023-03-25 06:05] LABS: HEMOGLOBIN 11.2 g/dl (13.5-18.0); MEAN CELL VOLUME 99 fl (80.0-100.0); MEAN CORPUSCULAR HEMOGLOBIN 33 pg (27-31); MEAN CORPUSCULAR HGB CONC 33 g/dl (33.0-37.0); MEAN PLATELET VOLUME 10.6 fl (7.4-10.4); PLATELET COUNT 159 K/mm3 (130-400); REDCELL DISTRIBUTION WIDTH-CV 14.5 % (11.5-14.5)
[2023-03-25 06:11] LABS: INR 2.3 (0.8-3.0); PROTHROMBIN TIME 24.3 SECONDS (9.7-12.8)
[2023-03-25 06:13] LABS: HEMATOCRIT 33.5 % (42.0-52.0)
[2023-03-25 06:23] LABS: BILIRUBIN,TOTAL 1.3 mg/dL (0.2-1.2); CREATININE, serum 1.21 mg/dL (0.72-1.25); MAGNESIUM 2.1 mg/dL (1.6-2.6); POTASSIUM 3.6 mmol/L (3.5-4.5); TOTAL PROTEIN 7.3 gm/dL (6.2-8.1)
[2023-03-25] MEDS ORDERED: Potassium Bicarbonate/Citrate 20 MEQ Effervescent TAB PO SCH (06:30)
[2023-03-25 06:34] LABS: HYPOCHROMIA 1+; LYMPHOCYTE 3 % (20.0-51.0); NEUTROPHILS 95 % (42.0-75.2); PLATELET ESTIMATE NORMAL (NORMAL)
[2023-03-25] MEDS ORDERED: Formoterol Neb Soln 20 MCG/2 ML UD IH SCH (07:00)
[2023-03-25] MEDS ORDERED: Doxycycline Hyclate 100 MG in NS 150 ML IV SCH (10:00)
[2023-03-26] VITALS (627 sets, daily range): BP systolic 131–151; BP diastolic 48–78; PULSE 59–62; TEMP 97.4–98.7; O2SAT 84–100
[2023-03-26] MEDS ORDERED: ALPRAZolam 0.25 MG TAB PO ONE (01:15)
[2023-03-26] MEDS ORDERED: Furosemide 100 MG/10 ML VIAL IV ONE (04:00)
--- NOTE | 2023-03-26 04:21 | NUR ---
THIS RT CALLED TO PT BEDSIDE FOR ANOTHER DUONEB TREATMENT. THE PT HAD BEEN PRESENTING WITH WHEEZES ASSOCIATED WITH FLUID RETENTION PRIOR TO TREATMENT AND SHOWN NO RELIEF AFTERWARDS. CPAP OF 9 WAS INITIATED ON PATIENT AFTER BEING TOLD THIS WAS THE "PERFECT PRESSURE" TO THE PATIENT. FI02 OF 30%. PATIENT IS STATING HE WANTS TO SLEEP AND COMPLY TO GET MORE REST. THIS RT REQUESTED A SMALL DOSE OF MORPHINE TO HELP CALM PATIENT BUT MORE IMPORTANTLY HELP RELIEVE AIR HUNGER. SINCE ALPRAZOLAM WAS ADMINISTERED TO PT REQUEST OF FEELING ANXIOUS, NOC HOSPITALIST AGREED THAT IF PATIENT WAS TO CONTINUE ANXIETY SPELLS HE WOULD PROCEED WITH MORPHINE ADMINISTRATION. PATIENT SEEMS TO HAVE CALMED DOWN AFTER POSTIVE PRESSURE HAS BEEN APPLIED.
[2023-03-26 06:08] LABS: HEMOGLOBIN 10.9 g/dl (13.5-18.0); MEAN CELL VOLUME 100 fl (80.0-100.0); MEAN CORPUSCULAR HEMOGLOBIN 33 pg (27-31); MEAN CORPUSCULAR HGB CONC 33 g/dl (33.0-37.0); MEAN PLATELET VOLUME 11.1 fl (7.4-10.4); PLATELET COUNT 185 K/mm3 (130-400); RED BLOOD COUNT 3.31 M/mm3 (4.20-5.60); REDCELL DISTRIBUTION WIDTH-CV 14.4 % (11.5-14.5)
[2023-03-26 06:20] LABS: CALCIUM 8.8 mg/dL (8.4-10.2); CREATININE, serum 1.31 mg/dL (0.72-1.25); POTASSIUM 4.2 mmol/L (3.5-4.5)
[2023-03-26 06:24] LABS: INR 2.9 (0.8-3.0)
[2023-03-26 06:26] LABS: HEMATOCRIT 33.1 % (42.0-52.0)
--- NOTE | 2023-03-26 07:00 | NUR ---
Report received from CARMELO Schreiber. Pt was fairly restless and anxious overnight. Was given additional dose of lasix and had good urine output with it. Was also given one time does of xanax and was finally able to relax and go to sleep around 0300. Pt now sitting up in chair and sleeping. No s/s discomfort; appears to be resting comfortably. Call light in reach.
[2023-03-26 07:12] LABS: BAND 6 % (0-10); LYMPHOCYTE 2 % (20.0-51.0); NEUTROPHILS 88 % (42.0-75.2); OVALOCYTES 1+
[2023-03-26 07:13] LABS: PLATELET ESTIMATE NORMAL (NORMAL)
--- NOTE | 2023-03-26 08:21 | NUR ---
PT C/O AIR HUNGER OVERNIGHT AND ANXIETY. PT GIVEN XANAX. PLACED ON C-PAP. SVN'S GIVEN BY RT. LASIX, POTASSIUM AND MAGNESIUM GIVEN. PT STATES HE FEELS BETTER AFTER GETTING UP TO CHAIR, BIPAP, LASIX AND SVN'S. TOVAR BAG LEAKED AFTER LASIX.
[2023-03-26] MEDS ORDERED: dexAMETHasone 4 MG TAB PO SCH (09:00)
--- NOTE | 2023-03-26 15:26 | NUR ---
Geoscience Laboratory Technician met with patient to discuss recommendation for post acute rehab. SW provided Medicare.gov list of SNF options, then discussed swing bed and acute rehab as additional options. Patient's , Cordelia is at bedside and is interested in [facility] and [facility]. SW advised [facility] cannot accept skilled referrals at this time, but [facility] could potentially have beds opening soon, however there is no guarantee. Cordelia and patient would like to have referrals sent to [facility] and [facility], although would like to also discuss this further as a family tonight. SW did discuss IPR as an option, however patient and stated after discussion with Dr. Peck, Intrusion Analyst they felt IPR would be too intensive for patient. GARETT contacted Paula at [facility] and gave referral. GARETT also contacted Dee at [facility] and faxed referral.
--- NOTE | 2023-03-26 20:09 | NUR ---
REPORT RECIEVED FROM ICU ON PATIENT.
--- NOTE | 2023-03-26 20:13 | NUR ---
Pt transfered to medical room 318 via wheelchair at this time. Report given to CARMELO Marlow. Pt transported with all belongings in his possession; phone,ipad, bariatric nurse, shoes, clothes, and oxygen concentrator. Pt able to make his aware of room change. Pt met in room by CARMELO Browne. Pt assisted to chair with walker with stand by assist. Pt continues to wear 3L NC. Call light in reach. Ele made aware of pt's arrival by this RN.
--- NOTE | 2023-03-26 20:15 | NUR ---
PATIENT RESTING IN BEDSIDE RECLINER WITH NO ACUTE DISTRESS NOTED. PATIENT ON 3 LITERS OF OXYGEN VIA NC. TELEMETRY INTACT. ASSESSMENT COMPLETED AT THIS THIS TIME. PATIENT TOELRATED WELL. PATIENT REQUESTED CUP OF COFFEE, WATER, AND WARM WIPES. ALL GIVEN. PATIENT DENIES ANY OTHER NEEDS. RECLINER LOCKED AND CALL LIGHT WITHIN REACH.
--- NOTE | 2023-03-26 20:35 | NUR ---
PATIENT RESTING IN BEDSIDE RECLINER WITH TV ON WITH NO ACUTE DISTRESS NOTED. PATEINT ON 3 LITERS OF OXYGEN VIA NC. MEDICATION ADMINISTRATION COMPLETED AT THIS TIME. PATIENT TOELRATED WELL. PATIENT REQUESTED WARM BLANKET AND WAS GIVEN. ALL NEEDS MET. RECLINER LOCKED AND CALL LIGHT WITHIN REACH.
[2023-03-27] VITALS: BP_SYST 133
[2023-03-27 03:51] VITALS: BP 140/63; PULSE 66; TEMP 97.6
[2023-03-27 04:00] VITALS: BP_SYST 140
[2023-03-27 06:55] LABS: HEMOGLOBIN 11.3 g/dl (13.5-18.0); MEAN CELL VOLUME 98 fl (80.0-100.0); MEAN CORPUSCULAR HEMOGLOBIN 33 pg (27-31); MEAN CORPUSCULAR HGB CONC 33 g/dl (33.0-37.0); MEAN PLATELET VOLUME 11.1 fl (7.4-10.4); PLATELET COUNT 200 K/mm3 (130-400); RED BLOOD COUNT 3.47 M/mm3 (4.20-5.60); REDCELL DISTRIBUTION WIDTH-CV 14.4 % (11.5-14.5)
[2023-03-27 07:13] LABS: INR 3.1 (0.8-3.0); PROTHROMBIN TIME 32.3 SECONDS (9.7-12.8)
[2023-03-27 07:16] LABS: CALCIUM 8.5 mg/dL (8.4-10.2); CREATININE, serum 1.07 mg/dL (0.72-1.25)
[2023-03-27 07:34] VITALS: BP 135/54; PULSE 64; TEMP 97.8
[2023-03-27 07:40] LABS: BAND 2 % (0-10); LYMPHOCYTE 3 % (20.0-51.0); NEUTROPHILS 91 % (42.0-75.2); PLATELET ESTIMATE NORMAL (NORMAL)
[2023-03-27 09:00] VITALS: BP_SYST 149
--- NOTE | 2023-03-27 09:00 | NUR ---
Patient is in the chair, at the bedside, Alert and oriented x 4, Getting 2.5 L O2 NC Assessment completed, no further needs at this time. Call light within reach.
[2023-03-27] MEDS ORDERED: BETAPACE 80MG80 MG PO (09:29)
[2023-03-27] MEDS ORDERED: DOXYCYCLINE HY100 MG PO (09:33)
[2023-03-27] MEDS ORDERED: IPRATROPIUM BROM3 M1 IH ×2 (09:44)
[2023-03-27] MEDS ORDERED: DECADRON 4MG TAB4 MG PO (09:46)
[2023-03-27 11:04] VITALS: BP 149/55; PULSE 78; TEMP 97.6
--- NOTE | 2023-03-27 12:37 | NUR ---
Report given to RN in [facility]. Pt taken by wheelchair by SENIOR ENVIRONMENTAL PRACTICE LEADER to the entrance on pt admissions to be transfered by his to swing bed.
--- NOTE | 2023-03-27 12:37 | NUR ---
IV access and telemetry was discontinued.
--- NOTE | 2023-03-27 16:41 | NUR ---
SW was notified patient was accepted by [facility]. GARETT notified patient's doctor. SW was notified patient and his would like to speak with her. GARETT met with patient and his . Patient's had a question about the therapy at and how long he would be there. GARETT explained it depends on patient's progress but he has therapy about an hour a day. Patient's asked about choice between [facility] and [facility]. GARETT explained [facility] is unable to accept patient at this time due to bed availability. Patient and his understood and was accepting of patient going to [facility]. GARETT notified [facility] that patient is accepting of going there. GARETT notified patient's nurse and rn progressive care unit. Discharge plan: [facility]
== END 2023-03-27 12:00 | disposition swing bed (61) | DRG 291 ==
LOC: COL.ER 08:37 → MEDICAL 10:40 → IMCU 03-24 19:14 → MEDICAL 03-26 18:46
PROVIDERS: Emergency Medicine; Hospitalist; Internal Medicine; ADMIT Internal Medicine
DX: I13.0 Hypertensive heart and chronic kidney disease with heart failure and stage 1 through stage 4 chronic kidney disease, or unspecified chronic kidney disease (principal); I50.31 Acute diastolic (congestive) heart failure; J96.21 Acute and chronic respiratory failure with hypoxia; J44.1 Chronic obstructive pulmonary disease with (acute) exacerbation; I27.20 Pulmonary hypertension, unspecified; I34.0 Nonrheumatic mitral (valve) insufficiency; I48.91 Unspecified atrial fibrillation; Z79.01 Long term (current) use of anticoagulants; Z95.0 Presence of cardiac pacemaker; I25.10 Atherosclerotic heart disease of native coronary artery without angina pectoris; N18.30 Chronic kidney disease, stage 3 unspecified; E78.5 Hyperlipidemia, unspecified; N40.0 Benign prostatic hyperplasia without lower urinary tract symptoms
CPT/HCPCS: A4314; J0696; J1100; J1940; J2543; J3475; J7512; J8540; Q9967